=== PATIENT | female | born 1955 | race Caucasian/White ===

== ENCOUNTER 2018-06-24 09:05 | Day surgery (SDC) | payer BC ==
[2018-06-24] MEDS ORDERED: FENTAnyl 50 MCG/ML VIAL (10:50)
[2018-06-24] MEDS ORDERED: PROPOFOL 20 ML (10:50)
== END 2018-06-24 12:56 | disposition home or self-care (01) ==
LOC: GIL 09:05
DX: Z12.11 Encounter for screening for malignant neoplasm of colon (principal); D12.3 Benign neoplasm of transverse colon; K57.90 Diverticulosis of intestine, part unspecified, without perforation or abscess without bleeding; K64.8 Other hemorrhoids
CPT/HCPCS: 45380; 88305